=== PATIENT | female | born 1975 | race Caucasian/White ===

== ENCOUNTER 2024-06-05 17:27 | Emergency (ER) | payer MEDICAID, SELFPAY ==
[2024-06-05 17:47] VITALS: BP 165/97; PULSE 53; RESP 16; TEMP 36.7; O2SAT 99; BMI 28.8
--- NOTE | 2024-06-05 17:51 | EKG_ITS ---
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
--- NOTE | 2024-06-05 17:51 | XR_ITS ---
Examination: CT brain head without contrast. 2-D sagittal coronal reconstructions Date and time of exam:June 05, 2024 0706 hours INDICATIONS: Headaches with high blood pressure today COMPARISON: 03/25/2020 CTDI: vol (mGy):47.7 DLP: (mGycm):898 Technique: Multiple CT axial sections of the brain have been obtained, 5 mm slice thickness. Contrast has not been administered. 2-D sagittal, coronal reconstructions have been obtained Low dose protocols were performed. One or more of the following dose reduction techniques were used; automated exposure control, adjustment of the mA and/or KV according to patient size, use of iterative reconstruction technique. Findings: No significant ventricular enlargement. Intra-axial or extra-axial hemorrhage density is not seen. No mass effect or midline shift Basal cisterns are not remarkable. Fourth ventricle is midline. Cranial vault intact. Impression: Negative for acute hemorrhage, mass effect or midline shift
--- NOTE | 2024-06-05 17:51 | XR_ITS ---
Examination: PA lateral chest 2 views TECHNIQUE: Upright PA lateral chest 2 views Exam date and time: June 05, 2024 1935 hours INDICATIONS: Chest pain today. FINDINGS: Early left perihilar and right basilar pneumonia Normal heart size The osseous structures are intact IMPRESSION: Early left perihilar right basilar pneumonia
--- NOTE | 2024-06-05 17:52 | PD.EDRME ---
Rapid Medical Screening Exam RME Arrival date/time: 06/05/24 17:27 49-year-old female past medical history of everyday smoker and hypertension presents to the emergency department complaining of headache, difficulty breathing, high blood pressure, and chest and neck pressure that started since yesterday. Chief Complaint: Headache Time Seen by Provider: 06/05/24 17:34 Vital signs: Vital Signs Temperature 98.1 F 06/05/24 17:47 Pulse Rate 53 L 06/05/24 17:47 Respiratory Rate 16 06/05/24 17:47 Blood Pressure 165/97 H 06/05/24 17:47 Pulse Oximetry (%) 99 06/05/24 17:47 Oxygen Delivery Method Room Air 06/05/24 17:47 Vital signs reviewed by provider: Yes
[2024-06-05] MEDS: ACETAMINOPHEN 500 MG TABLET 1000 MG PO (17:57)
[2024-06-05 19:00] LABS: Basophils # (Auto) 0.1 Thou/mm3 (0.0-0.2); Basophils % (Auto) 1 % (0-2.5); Eosinophils # (Auto) 0.4 Thou/mm3 (0.0-0.5); Eosinophils % (Auto) 3 % (0-10); Hematocrit 40.5 % (36.0-46.0); Immature Granulocytes % (Auto) 0 % (0-0); Immature Granulocytes Auto 0.03 Thou/mm3 (0.00-0.00); Lymphocytes # (Auto) 3.6 Thou/mm3 (1.0-4.8); Lymphocytes % (Auto) 35 % (10-50); Mean Corpuscular HGB Conc 34.6 g/dl (31.0-37.0); Mean Corpuscular Volume 93 fL (80-100); Monocytes # (Auto) 0.8 Thou/mm3 (0.0-0.8); Monocytes % (Auto) 8 % (0-12); Neutrophils # (Auto) 5.4 Thou/mm3 (1.8-7.7); Neutrophils % (Auto) 53 % (37-80); Nucleated Red Blood Cell % 0 /100 WBC (0); Platelet Count 263 Thou/mm3 (140-440); RDW Standard Deviation 43.9 fL (36.4-46.3); Red Blood Count 4.37 Miln/mm3 (4.00-5.20); White Blood Count 10.3 Thou/mm3 (3.6-11.0)
[2024-06-05 19:18] LABS: INR 0.9 (0.9-1.3); Partial Thromboplastin Time 23.5 Seconds (22.0-36.0); Prothrombin Time 10.3 Seconds (9.0-12.2)
[2024-06-05 19:20] LABS: Alanine Aminotransferase 23 U/L (10-49); Albumin, Serum 4.5 gm/dL (3.5-5.0); Alkaline Phosphatase 52 U/L (46-116); Anion Gap 7 (7-16); Aspartate Amino Transferase 18 U/L (0-34); B-Type Natriuretic Peptide 74 pg/mL (0-100); BUN/Creatinine Ratio 15 Ratio (12-20); Bilirubin,Total 0.4 mg/dL (0.3-1.2); Blood Urea Nitrogen 12 mg/dL (9-23); Calcium 9.2 mg/dL (8.3-10.6); Calcium (Corrected) 9.2 mg/dL (8.5-10.1); Carbon Dioxide 24.7 mMol/L (20.0-31.0); Chloride 107 mMol/L (98-107); Creatinine (Component) 0.8 mg/dL (0.6-1.3); Estimated Creatinine Clearance 82.7 mL/min (>60); Globulin 2.2 gm/dL (2.3-3.5); Glucose 104 mg/dL (74-106); Magnesium 1.7 mg/dL (1.6-2.6); Osmolality,Calculated 277 (275-295); Potassium 3.5 mMol/L (3.4-5.1); Sodium 139 mMol/L (136-145); Total Protein 6.7 gm/dL (5.7-8.2); Troponin I < 0.002 ng/mL (0.0-0.045); eGFR > 60 See Note
[2024-06-05 19:26] LABS: HCG,Qualitative Serum Negative
[2024-06-05 19:34] LABS: Amphetamine/Methamp Scrn,U Negative (Negative); Barbiturate Screen,Urine Negative (Negative); Benzodiazepines Screen,Urine Negative (Negative); Benzoylecgonine Screen, Ur Negative (Negative); Fentanyl Screen,Urine Negative (Negative); Opiate Screen,Urine Negative (Negative); THC Screen,Urine Positive (Negative)
--- NOTE | 2024-06-05 21:06 | PD.EDADULT ---
ED General RME/HPI General Chief complaint: Headache Stated complaint: 193/117 . headache Time Seen by Provider: 06/05/24 17:34 Arrival date/time: 06/05/24 17:27 CC: Headache and hypertension HPI patient ate a hot dog last night developed a new headache when she woke up this morning she continued of the headache checked her blood pressure and it was 190/100 patient was immediately referred from her PCP to the emergency room for reevaluation. The patient denies any chest pain at the time of the hypertension. Typically the patient is always associated hypertension with chest pain and carries nitroglycerin with her she did not taken any of this. The patient is normally on lisinopril for hypertension. The patient is awake alert oriented upon assessment at 2100. The patient's headache is minimal. Pressures have decreased significantly without significant intervention. Patient continues to deny chest pain shortness of breath or difficulty breathing. RME / HPI RME / HPI narrative: 06/05/24 17:27 49-year-old female past medical history of everyday smoker and hypertension presents to the emergency department complaining of headache, difficulty breathing, high blood pressure, and chest and neck pressure that started since yesterday. Related Data Previous Rx's ?Medication ?Instructions ?Recorded ibuprofen 600 mg tablet 600 mg PO Q8H PRN fever or pain 07/02/23 #30 tabs promethazine-DM 6.25 mg-15 mg/5 mL 5 ml PO Q6H PRN cough #200 mL 07/02/23 oral syrup albuterol sulfate 90 mcg/actuation 1 puff inhalation Q6H PRN 07/22/23 aerosol inhaler (Ventolin HFA) shortness of breath or wheezing #6.7 grams Allergies Allergy/AdvReac Type Severity Reaction Status Date / Time adhesive Allergy Severe Hives Verified 06/05/24 17:29 hydrocodone [From [place]] Allergy Severe Hallucinati Verified 06/05/24 17:29 ng ketorolac [From Toradol] Allergy Severe Hives Verified 06/05/24 17:29 meperidine Allergy Severe Rash Verified 06/05/24 17:29 morphine Allergy Severe Hives Verified 06/05/24 17:29 nalbuphine [From Nubain] Allergy Severe Anaphylaxis Verified 06/05/24 17:29 Review of Systems Review of Systems Narrative Review of Systems: GEN: No fever, no chills, no weight loss EYES: No discharge, no visual changes, no pain HEENT: No ear pain, no congestion, no sore throat PULM: No shortness of breath, no cough, no congestion CV: No chest pain, no dyspnea on exertion, no palpitations GI: No nausea, no vomiting, no diarrhea, no pain, no constipation : No frequency, no urgency, no dysuria MUSC/SKEL: No joint pain, no back pain SKIN: No rash PSYCH: No hallucinations, no depression HEME/LYMPH: No easy bleeding or bruising tendencies NEURO: No weakness, + headache Past Medical History Past Medical History NEUROLOGIC: Negative Seizures CARDIAC: Negative Cardiac Disorders or Congestive Heart Failure RESPIRATORY: Negative Chronic Obstructive Pulmonary Disease (COPD) or Asthma GASTROINTESTINAL: Positive Gastrointestinal Disorders, Colitis, Diverticulitis, Diverticulosis and Obstructive Bowel GENITOURINARY: Negative Renal Disease ENDOCRINE: Negative Endocrine Disorders, Diabetes Mellitus Type 1 or Diabetes Mellitus Type 2 HEMATOLOGIC: Negative Sickle Cell Disease OTHER HISTORY: Negative Blood Transfusions, Blood Transfusion Reaction or Anesthesia Reactions Family History FAMILY HISTORY: Negative Family Cardiac Disorders Surgical History SURGICAL: Positive Abdominal Surgery, Bowel Surgery and Section Social History SMOKING STATUS: Current every day smoker SUBSTANCE USE: does not use Course Quality Measures VTE prophylaxis Orders Category Date Time Status EKG (ED ONLY) *Do not use* NOW Care 06/05/24 17:[address] head/brain wo con Stat Exams 06/05/24 17:51 Completed EKG (ED Only) Stat Exams 06/05/24 17:51 Draft XR chest 2V Stat Exams 06/05/24 17:51 Completed B-Type Natriuretic Peptide Stat Lab 06/05/24 18:31 Completed CBC Stat Lab 06/05/24 18:31 Completed Comprehensive Metabolic Panel Stat Lab 06/05/24 18:31 Completed Drug Screen,Urine Stat Lab 06/05/24 18:44 Completed HCG,Qualitative Serum Stat Lab 06/05/24 18:31 Completed Magnesium Stat Lab 06/05/24 18:31 Completed Partial Thromboplastin Time Stat Lab 06/05/24 18:31 Completed Prothrombin Time with INR Stat Lab 06/05/24 18:31 Completed Troponin I Stat Lab 06/05/24 18:31 Completed Acetaminophen Tab [Tylenol ES Tab] Med 06/05/24 17:52 Discontinued 1,000 mg PO X1 ONE Vital Signs Vital signs: Vital Signs Temperature 98.1 F 06/05/24 17:47 Pulse Rate 53 L 06/05/24 17:47 Respiratory Rate 16 06/05/24 17:47 Blood Pressure 165/97 H 06/05/24 17:47 Pulse Oximetry (%) 99 06/05/24 17:47 Oxygen Delivery Method Room Air 06/05/24 17:47 [facility] Patient data External records reviewed:: [facility] previous records Clinical information provided by:: patient Social determinants that could affect healthcare access:: none Patient has the following chronic illnesses:: Hypertension chest pain How is presenting disease/condition affected by chronic disease/condition?: uneffected by Evaluation data The following diagnostics were reviewed and interpreted by me:: lab results, radiology exam(s) and EKG tracing(s) Lab and/or radiology exams considered but not ordered:: EKG performed at 1804 shows a ventricular rate of 75 [place] interval 143 QRS of 9 8 QTc of 414 CBC shows no acute leukocytosis anemia thrombocytopenia CMP shows no acute electrolyte imbalances renal impairment transaminitis or T. bili elevation Urine is negative for UTI Urine is positive for THC Lipase is negative Troponin and BNP are negative Chest x-ray is unremarkable for any acute finding that requires emergent or meet intervention CT of the head is negative for any acute finding requires emergent Interpretation Summary: Hypertensive episode, headache Medications Medications considered but not ordered:: None Medication administrations:: Medication Administration History Discontinued Medications Acetaminophen (Acetaminophen 500 Mg Tablet) 1,000 mg PO X1 ONE Stop: 06/05/24 17:53 Last Admin: 06/05/24 17:57 Dose: 1,000 mg Documented By: None Consultations Consultation(s) initiated? (list below): No Diagnosis Differential Diagnosis ED Complaint MDM: ACS, HTN MN Most likely diagnosis given after review of the tests above:: HTN, RG Admission Indicated Admission indicated?: not indicated Explain why admission is indicated or not indicated:: Stable for outpatient follow-up Admission Request Was there a request for admission?: No Disposition Plan Disposition Plan: Discharge Discharge Attestation Discharge Attestation: The patient and all family members were given an opportunity to ask questions and understood the discharge instructions. Discharge instructions specifically effects, indications for sooner follow up or return to the emergency department, and the expected course of current diagnosis. Patient condition: Stable Medical Decision Making Differential Diagnosis Differential Diagnosis: ACS, HTN MN Lab Data 06/05/24 18:31 06/05/24 18:31 Labs: Lab Results 06/05/24 06/05/24 Range/Units 18:31 18:44 WBC 10.3 (3.6-11.0) Thou/mm3 RBC 4.37 (4.00-5.20) Miln/mm3 Hgb 14.0 (12.0-16.0) g/dL Hct 40.5 (36.0-46.0) % MCV 93 (80-100) fL MCH 32.0 (25.0-35.0) pg MCHC 34.6 (31.0-37.0) g/dl RDW Std Deviation 43.9 (36.4-46.3) fL Plt Count 263 (140-440) Thou/mm3 Neut % (Auto) 53 (37-80) % Lymph % (Auto) 35 (10-50) % [place] % (Auto) 8 (0-12) % Eos % (Auto) 3 (0-10) % Baso % (Auto) 1 (0-2.5) % Neut # (Auto) 5.4 (1.8-7.7) Thou/mm3 Lymph # (Auto) 3.6 (1.0-4.8) Thou/mm3 [place] # (Auto) 0.8 (0.0-0.8) Thou/mm3 Eos # (Auto) 0.4 (0.0-0.5) Thou/mm3 Baso # (Auto) 0.1 (0.0-0.2) Thou/mm3 Immature Gran # (Auto) 0.03 H (0.00-0.00) Thou/mm3 Absolute Nucleated RBC 0.00 (0.00-0.00) Thou/mm3 Immature Gran % 0 (0-0) % Nucleated RBC % 0 (0) /100 WBC PT 10.3 (9.0-12.2) Seconds INR 0.9 (0.9-1.3) APTT 23.5 (22.0-36.0) Seconds Sodium 139 (136-145) mMol/L Potassium 3.5 (3.4-5.1) mMol/L Chloride 107 (98-107) mMol/L Carbon Dioxide 24.7 (20.0-31.0) mMol/L Anion Gap 7 (7-16) BUN 12 (9-23) mg/dL Creatinine 0.8 (0.6-1.3) mg/dL Estim Creat Clear Calc 82.7 (>60) mL/min eGFR > 60 (60 - ) See Note BUN/Creatinine Ratio 15 (12-20) Ratio Glucose 104 (74-106) mg/dL Calculated Osmolality 277 (275-295) Calcium 9.2 (8.3-10.6) mg/dL Corrected Calcium 9.2 (8.5-10.1) mg/dL Magnesium 1.7 (1.6-2.6) mg/dL Total Bilirubin 0.4 (0.3-1.2) mg/dL AST 18 (0-34) U/L ALT 23 (10-49) U/L Alkaline Phosphatase 52 (46-116) U/L Troponin I < 0.002 (0.0-0.045) ng/mL B-Natriuretic Peptide 74 (0-100) pg/mL Total Protein 6.7 (5.7-8.2) gm/dL Albumin 4.5 (3.5-5.0) gm/dL Globulin 2.2 L (2.3-3.5) gm/dL Albumin/Globulin Ratio 2.0 (1.2-2.2) HCG, Qual Negative Urine Opiates Screen Negative (Negative) Urine Fentanyl Screen Negative (Negative) Ur Barbiturates Screen Negative (Negative) U Amphetamin/Meth Scrn Negative (Negative) U Benzodiazepines Scrn Negative (Negative) U Cocaine Metab Screen Negative (Negative) U Marijuana (THC) Screen Positive A (Negative) Discharge Plan Plan Patient Disposition: HOME (Self Care) Patient condition on transfer: Stable Prescriptions/Referrals Prescriptions/Med Rec: No Action albuterol sulfate [Ventolin HFA] 90 mcg/actuation HFA aerosol inhaler 1 puff inhalation Q6H PRN (Reason: shortness of breath or wheezing) Qty: 6.7 0RF promethazine-DM 6.25-15 mg/5 mL syrup 5 ml PO Q6H PRN (Reason: cough) Qty: 200 0RF ibuprofen 600 mg tablet 600 mg PO Q8H PRN (Reason: fever or pain) Qty: 30 0RF Referrals: Flower Mar PA-C [Primary Care Provider] - In 1 week Problem List Clinical Impression: Headache, Hypertension Patient/Caregiver Discharge Instructions Education Materials: ED High Blood Pressure ..., Self-Care for Headaches Print Language: Estonian Stand Alone Forms: Briana Award Info., Patient Portal Info Letter, Work/School Release PA/STAGE RIGGER Supervising Physician PA/STAGE RIGGER Supervising Physician: Herminio Darden ENP
[2024-06-05 21:26] VITALS: BP 138/85; BP 142/67; PULSE 87; PULSE 98; RESP 19; TEMP 37.1; O2SAT 99
== END 2024-06-05 21:27 | disposition home or self-care (01) ==
PROVIDERS: Emergency Provider Emergency Medicine; PCP Physician Assistant Medical
DX: I10 Essential (primary) hypertension (principal); R51.9 Headache, unspecified; F17.210 Nicotine dependence, cigarettes, uncomplicated; R94.31 Abnormal electrocardiogram [ECG] [EKG]; R07.9 Chest pain, unspecified
CPT/HCPCS: 36415; 70450; 71046; 80053; 80307; 83735; 83880; 84484; 84703; 85025; 85610; 85730; 93005; 99284; A9270

== ENCOUNTER 2024-07-14 13:59 | Emergency (ER) | payer MEDICAID, SELFPAY ==
[2024-07-14 14:18] VITALS: BP 132/87; PULSE 79; RESP 19; TEMP 36.9; O2SAT 98; BMI 28.1
--- NOTE | 2024-07-14 14:20 | XR_ITS ---
Examination: Lumbar spine 3 views TECHNIQUE: AP lateral coned lateral lower lumbar spine 3 views Exam date and time: July 14, 2024 1516 hours INDICATIONS: Patient fell today with injury of the lower back, lower back pain. FINDINGS: Moderate osteopenia Lumbar levoscoliosis 16 degrees No acute lumbar fracture Diffuse lumbar disc narrowing, advanced L3-L4 No spondylolisthesis IMPRESSION: No acute lumbar fracture
--- NOTE | 2024-07-14 14:23 | EDNOTE_ITS ---
<Statement entered by Angella Zarco MD - 07/21/24 12:00> As co-signing physician, I was present and available for consult prn. I concur with the plan and care as documented by the midlevel provider. ED Back Injury Pain RME/HPI General Chief Complaint: Back Pain/Injury Stated Complaint: LOWER BACK PAIN/RIGHT HIP Time Seen by Provider: 07/14/24 14:21 Source: patient Arrival date/time: 07/14/24 13:59 49-year-old female with no known medical history presents to the emergency room with a chief complaint of lower back pain x 1 day. Patient states her stairs broke and caused her to fall and injure her lower back. Mode of arrival: ambulatory Limitations: no limitations Related Data Previous Rx's ?Medication ?Instructions ?Recorded ibuprofen 600 mg tablet 600 mg PO Q8H PRN fever or pain 07/02/23 #30 tabs promethazine-DM 6.25 mg-15 mg/5 mL 5 ml PO Q6H PRN cough #200 mL 07/02/23 oral syrup albuterol sulfate 90 mcg/actuation 1 puff inhalation Q6H PRN 07/22/23 aerosol inhaler (Ventolin HFA) shortness of breath or wheezing #6.7 grams Allergies Allergy/AdvReac Type Severity Reaction Status Date / Time adhesive Allergy Severe Hives Verified 07/14/24 14:02 hydrocodone [From [place]] Allergy Severe Hallucinati Verified 07/14/24 14:02 ng ketorolac [From Toradol] Allergy Severe Hives Verified 07/14/24 14:02 meperidine Allergy Severe Rash Verified 07/14/24 14:02 morphine Allergy Severe Hives Verified 07/14/24 14:02 nalbuphine [From Nubain] Allergy Severe Anaphylaxis Verified 07/14/24 14:02 Review of Systems Review of Systems Systems Reviewed: All systems reviewed, normal except as documented Constitutional Constitutional: Reports system reviewed and no additional complaints, except as documented, Denies fatigue, Denies fever(s), Denies headache(s) and Denies weakness Eyes Eyes: Reports system reviewed and no additional complaints, except as documented, Denies blurry vision and Denies change in vision ENT Ears, Nose, Mouth, and Throat: Reports system reviewed and no additional complaints, except as documented, Denies otalgia, Denies headache(s), Denies nasal congestion, Denies throat swelling and Denies vertigo Cardiovascular Cardiovascular: Reports system reviewed and no additional complaints, except as documented, Denies chest pain, Denies dyspnea and Denies dyspnea on exertion Respiratory Respiratory: Reports system reviewed and no additional complaints, except as documented, Denies chest congestion, Denies cough, Denies dyspnea, Denies dyspnea on exertion and Denies wheezing Gastrointestinal Gastrointestinal: Reports system reviewed and no additional complaints, except as documented, Denies abdominal pain, Denies cramping, Denies nausea and Denies vomiting Genitourinary Genitourinary: Reports system reviewed and no additional complaints, except as documented Musculoskeletal Musculoskeletal: Reports system reviewed and no additional complaints, except as documented, Reports abnormal gait, Reports arthralgias and Reports back pain Integumentary/Breasts Skin/Breast: Reports system reviewed and no additional complaints, except as documented and Denies wounds Neurologic Neurologic: Reports system reviewed and no additional complaints, except as documented, Reports abnormal gait, Denies confusion, Denies headache(s), Denies lack of coordination, Denies vertigo and Denies weakness Psychiatric Psychiatric: Reports system reviewed and no additional complaints, except as documented, Denies anxiety, Denies confusion, Denies depression, Denies paranoia, Denies suicidal ideation and Denies tactile hallucinations Endocrine Endocrine: Reports system reviewed and no additional complaints, except as documented and Denies fatigue Hematologic/Lymphatic Hematologic/Lymphatic: Reports system reviewed and no additional complaints, except as documented and Denies lymphadenopathy Allergic/Immunologic Allergic/Immunologic: Reports system reviewed and no additional complaints, except as documented, Denies throat swelling, Denies urticaria and Denies wheezing Past Medical History Past Medical History NEUROLOGIC: Negative Seizures CARDIAC: Negative Cardiac Disorders or Congestive Heart Failure RESPIRATORY: Negative Chronic Obstructive Pulmonary Disease (COPD) or Asthma GASTROINTESTINAL: Positive Gastrointestinal Disorders, Colitis, Diverticulitis, Diverticulosis and Obstructive Bowel GENITOURINARY: Negative Renal Disease ENDOCRINE: Negative Endocrine Disorders, Diabetes Mellitus Type 1 or Diabetes Mellitus Type 2 HEMATOLOGIC: Negative Sickle Cell Disease OTHER HISTORY: Negative Blood Transfusions, Blood Transfusion Reaction or Anesthesia Reactions Family History FAMILY HISTORY: Negative Family Cardiac Disorders Surgical History SURGICAL: Positive Abdominal Surgery, Bowel Surgery and Section Social History SMOKING STATUS: Current every day smoker SUBSTANCE USE: does not use ED Exam General Limitations: Present no limitations General appearance: Present alert and in no apparent distress Head Head exam: Present atraumatic Eye Eye exam: Present normal appearance, PERRL and EOMI ENT ENT exam: Present normal exam, normal oropharynx and mucous membranes moist Neck Neck exam: Present normal inspection, full ROM and trachea midline Chest Chest inspection: Present normal inspection and symmetric chest wall rise Respiratory Respiratory exam: Present normal lung sounds bilaterally Cardiovascular Cardiovascular exam: Present regular rate, normal rhythm and normal heart sounds Abdominal Exam Abdominal exam: Present soft and normal bowel sounds Extremities Exam Extremities exam: Present normal inspection and full ROM Back Exam Back exam: Present normal inspection, full ROM, tenderness, paraspinal tenderness and vertebral tenderness Back 1 view image: 2 1. Tenderness and pain to the lumbar area of her spine Neurological Exam Neurological exam: Present alert, oriented X3 and CN II-XII intact Psychiatric Psychiatric exam: Present normal affect and normal mood Skin Skin exam: Present warm, dry, intact and normal color Course Quality Measures none Orders Category Date Time Status XR lumbar spine 2-3V Stat Exams 07/14/24 14:20 Completed HCG Qualitative,Urine Stat Lab 07/14/24 14:45 Completed Vital Signs Vital signs: Vital Signs Temperature 98.5 F 07/14/24 14:18 Pulse Rate 79 07/14/24 14:18 Respiratory Rate 19 07/14/24 14:18 Blood Pressure 132/87 H 07/14/24 14:18 Pulse Oximetry (%) 98 07/14/24 14:18 Oxygen Delivery Method Room Air 07/14/24 14:18 Back Pain / Injury MDM Narrative MDM Narrative:: 49-year-old female with no known medical history presents to the emergency room with a chief complaint of lower back pain x 1 day. Patient states her stairs broke and caused her to fall and injure her lower back. Clinically the patient appears nontoxic and in no apparent distress. Physical examination shows pain and tenderness to the lumbar area of her spine. Patient states it is a 7 out of 10 in severity. X-ray of the lumbar spine was completed and was negative for any acute fracture. The patient is denying any loss of bowel or bladder function. The patient denies any numbness to the lower extremities. Patient is able to ambulate. Patient was educated to follow-up with primary care provider and return to the emergency room for any evidence of worsening signs or symptoms Patient data External records reviewed:: [facility] previous records Clinical information provided by:: patient Social determinants that could affect healthcare access:: none Patient has the following chronic illnesses:: No chronic illness How is presenting disease/condition affected by chronic disease/condition?: no chronic disease Evaluation data The following diagnostics were reviewed and interpreted by me:: lab results and radiology exam(s) Lab and/or radiology exams considered but not ordered:: Labs and radiology exams considered and ordered Interpretation Summary: X-ray lumbar spine-no acute fracture Medications / Prescriptions Medications or Prescriptions considered but not ordered:: No medication given Medication administrations:: No medication given Consultations Consultation(s) initiated? (list below): No Diagnosis Differential diagnosis back pain/injury: lumbar radiculopathy, sciatica, strain of lumbar region and discitis Most likely diagnosis given after review of the tests above:: Strain of lumbar region Admission Indicated Admission indicated?: not indicated Admission Request Was there a request for admission?: No Disposition Plan Disposition Plan: Discharge Discharge Attestation Discharge Attestation: The patient and all family members were given an opportunity to ask questions and understood the discharge instructions. Discharge instructions specifically effects, indications for sooner follow up or return to the emergency department, and the expected course of current diagnosis. Patient condition: Stable Discharge Plan Plan Patient Disposition: HOME (Self Care) Disposition Comment: Stable Prescriptions/Referrals Prescriptions/Med Rec: No Action albuterol sulfate [Ventolin HFA] 90 mcg/actuation HFA aerosol inhaler 1 puff inhalation Q6H PRN (Reason: shortness of breath or wheezing) Qty: 6.7 0RF promethazine-DM 6.25-15 mg/5 mL syrup 5 ml PO Q6H PRN (Reason: cough) Qty: 200 0RF ibuprofen 600 mg tablet 600 mg PO Q8H PRN (Reason: fever or pain) Qty: 30 0RF Referrals: Flower Mar PA-C [Primary Care Provider] - In 1 week Problem List Clinical Impression: Lumbar back sprain Patient/Caregiver Discharge Instructions Education Materials: Treating?Strains and Sprains, ED Back Sprain/Strain Additional Instructions: Please follow-up with your primary care provider in the next 24 to 48 hours. X-ray was completed and shows no acute fracture. For any evidence of worsening signs or symptoms please return to the emergency room immediately Print Language: Scottish Stand Alone Forms: Briana Award Info., Patient Portal Info Letter RITU/LEMON PICKER Supervising Physician RITU/LEMON PICKER Supervising Physician: Dr. ZARCO
[2024-07-14 15:16] LABS: HCG Qualitative,Urine Negative
== END 2024-07-14 17:43 | disposition home or self-care (01) ==
PROVIDERS: Nurse Practitioner Family; Emergency Provider Emergency Medicine; PCP Physician Assistant Medical
DX: S33.5XXA Sprain of ligaments of lumbar spine, initial encounter (principal); W10.8XXA Fall (on) (from) other stairs and steps, initial encounter
CPT/HCPCS: 72100; 81025; 99283

== ENCOUNTER 2024-08-04 13:21 | Emergency (ER) | payer MEDICAID, SELFPAY ==
[2024-08-04 13:22] VITALS: BMI 27.4
[2024-08-04 13:54] VITALS: BP 107/74; PULSE 99; RESP 18; TEMP 36.8; O2SAT 98
[2024-08-04 14:30] LABS: Basophils % (Auto) 0 % (0-2.5); Eosinophils % (Auto) 0 % (0-10); Hematocrit 46.3 % (36.0-46.0); Hemoglobin 15.9 g/dL (12.0-16.0); Immature Granulocytes % (Auto) 0 % (0-0); Immature Granulocytes Auto 0.03 Thou/mm3 (0.00-0.00); Lymphocytes # (Auto) 1.9 Thou/mm3 (1.0-4.8); Lymphocytes % (Auto) 22 % (10-50); Mean Corpuscular HGB Conc 34.3 g/dl (31.0-37.0); Mean Corpuscular Hemoglobin 31.6 pg (25.0-35.0); Mean Corpuscular Volume 92 fL (80-100); Monocytes # (Auto) 0.8 Thou/mm3 (0.0-0.8); Monocytes % (Auto) 9 % (0-12); Neutrophils # (Auto) 5.8 Thou/mm3 (1.8-7.7); Neutrophils % (Auto) 68 % (37-80); Nucleated Red Blood Cell % 0 /100 WBC (0); Platelet Count 218 Thou/mm3 (140-440); RDW Standard Deviation 44.9 fL (36.4-46.3); Red Blood Count 5.03 Miln/mm3 (4.00-5.20); White Blood Count 8.5 Thou/mm3 (3.6-11.0)
[2024-08-04 14:45] LABS: Alanine Aminotransferase 23 U/L (10-49); Albumin, Serum 5.3 gm/dL (3.5-5.0); Albumin/Globulin Ratio 2.3 (1.2-2.2); Alkaline Phosphatase 59 U/L (46-116); Anion Gap 11 (7-16); Aspartate Amino Transferase < 10 U/L (0-34); BUN/Creatinine Ratio 15 Ratio (12-20); Bilirubin,Total 0.5 mg/dL (0.3-1.2); Blood Urea Nitrogen 21 mg/dL (9-23); Calcium 9.9 mg/dL (8.3-10.6); Calcium (Corrected) 9.9 mg/dL (8.5-10.1); Carbon Dioxide 23.1 mMol/L (20.0-31.0); Chloride 105 mMol/L (98-107); Creatinine (Component) 1.4 mg/dL (0.6-1.3); Estimated Creatinine Clearance 46.2 mL/min (>60); Globulin 2.3 gm/dL (2.3-3.5); Glucose 111 mg/dL (74-106); Lipase 40 U/L (12-53); Osmolality,Calculated 281 (275-295); Potassium 3.4 mMol/L (3.4-5.1); Sodium 139 mMol/L (136-145); Total Protein 7.6 gm/dL (5.7-8.2); eGFR 46 See Note
[2024-08-04 15:12] LABS: Collection Type, Urine Clean Catch
[2024-08-04 15:17] LABS: Syphilis Nonreactive (Nonreactive)
[2024-08-04 15:20] LABS: HCG Qualitative,Urine Negative
[2024-08-04 15:25] LABS: Bacteria,Urine 1+; Bilirubin,Urine Negative (Negative); Blood,Urine Negative (Negative); Clarity,Urine Turbid (Clear/Hazy); Color,Urine Yellow (Lt Yel-Yel); Glucose, Urine Negative (Negative); Hyaline Casts,Urine 1 /hpf (0-1); Ketones,Urine Negative (Negative); Leukocyte Esterase,Urine Positive (Negative); Nitrite,Urine Negative (Negative); Protein,Urine 2+ (Neg - Trace); RBC,Urine 7 /hpf (0-3); Specific Gravity,Urine 1.022 (1.001-1.035); Squamous Epithelial Cell,Urine 44 /hpf (0-5); Urobilinogen,Urine Negative mg/dL (0.0-1.0); WBC,Urine 38 /hpf (0-5)
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
== END 2024-08-04 17:43 | disposition home or self-care (01) ==
PROVIDERS: Nurse Practitioner Primary Care; Emergency Provider Emergency Medicine; PCP Physician Assistant Medical
DX: J11.1 Influenza due to unidentified influenza virus with other respiratory manifestations (principal); Z20.2 Contact with and (suspected) exposure to infections with a predominantly sexual mode of transmission
CPT/HCPCS: 36415; 80053; 81001; 81025; 83690; 85025; 86780; 87400; 87491; 87591; 87661; 87811; 99283

== ENCOUNTER 2024-12-14 13:17 | Emergency (ER) | payer MEDICAID, SELFPAY ==
[2024-12-14 13:18] VITALS: BP 136/83; PULSE 86; RESP 18; TEMP 36.6; O2SAT 95; BMI 28.7
--- NOTE | 2024-12-14 14:05 | XR_ITS ---
Examination: CT brain head without contrast. 2-D sagittal coronal reconstructions Date and time of exam:December 14, 2024 1719 hours INDICATIONS: Onset left-sided body numbness beginning 3 days ago CTDI: vol (mGy):45.3 DLP: (mGycm):892 Technique: Multiple CT axial sections of the brain have been obtained, 5 mm slice thickness. Contrast has not been administered. 2-D sagittal, coronal reconstructions have been obtained Low dose protocols were performed. One or more of the following dose reduction techniques were used; automated exposure control, adjustment of the mA and/or KV according to patient size, use of iterative reconstruction technique. Findings: No significant ventricular enlargement. Intra-axial or extra-axial hemorrhage density is not seen. No mass effect or midline shift Basal cisterns are not remarkable. Fourth ventricle is midline. Cranial vault intact. Impression: Negative for acute hemorrhage, mass effect or midline shift If symptoms persist, consider brain MRI MRA without contrast follow-up
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
[2024-12-14 14:28] VITALS: BP 132/83; PULSE 84; RESP 16; TEMP 36.8; O2SAT 95; BMI 29.6
[2024-12-14] MEDS: DIAZEPAM 5 MG TABLET 10 MG PO (14:48)
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
[2024-12-14 16:32] VITALS: BP 114/68; PULSE 69; RESP 19; TEMP 36.8; O2SAT 96
== END 2024-12-14 16:39 | disposition home or self-care (01) ==
PROVIDERS: Emergency Provider Emergency Medicine; PCP Physician Assistant Medical
DX: R20.2 Paresthesia of skin (principal); R29.810 Facial weakness; I10 Essential (primary) hypertension
CPT/HCPCS: 70450; 99284; A9270